=== PATIENT | male | born 1990 | race Caucasian/White ===

== ENCOUNTER 2023-10-22 18:47 | Emergency (ER) | payer BC, SELFPAY ==
[2023-10-22 18:48] VITALS: BP 130/75; BMI 30.6
[2023-10-22 19:48] VITALS: BP 112/91
--- NOTE | 2023-10-22 19:58 | ED.GENMED ---
History of Present Illness
General
Chief Complaint: Musculo-Skeletal Complaint
Source: patient and ambulance crew
Exam Limitations: none
Time Seen by Provider: 10/22/23 19:30
Nursing documentation reviewed up to this point in time: agreed with
Travel History
Have you had any contact with someone who has COVID-19?: No
Do you have any symptoms of coronavirus? Fever > 100 degrees, chills, cough, shortness of breath, sore throat, loss of taste or smell, muscle aches, or headache?: No
History of Present Illness
History of Present Illness:
33-year-old male with no chronic medical issues presents to the emergency room from the gym for evaluation of a right groin injury. Patient reports that he was squatting and when he got to about parallel on the way up from a squat he felt a pop in
the right groin and intense pain. He says he fell to his knees and laid down on his side and pain. EMS was called to bring her to the hospital. According to the medics he had a vagal episode in the ambulance and was given some fluids on the way
to the hospital. Patient says that he was in intense pain and began to feel slightly dizzy. Pain has improved but still intense when he moves his right leg particularly attempts at abduction. He points to the inguinal crease on the right as area
of maximal pain. He denies any other injuries or complaints.
Review of Systems
Review of Systems
All Other Systems: ROS reviewed and negative except as documented in HPI and ROS
Respiratory: Denies cough or trouble breathing
Cardiac: Reports syncope; Denies chest pain or palpitations
ABD/GI: Denies abdominal pain, nausea or vomiting
: Denies flank pain
Musculoskeletal: Reports muscle pain (Groin pain); Denies neck pain or back pain
Neurological: Denies headache
Phy Exam
Physical Exam
Physical Exam:
General: Awake, alert, oriented x3; no acute distress
Head: Normocephalic, atraumatic
Eyes: Conjunctiva normal
Throat: Airway intact, handling secretions
Neck: Trachea midline, supple without meningismus
Lungs: Breathing comfortably not in distress, normal pulse ox, normal respiratory rate
Heart: Regular rate and rhythm, no murmurs, gallops, or rubs
Abd: Soft, non distended, nontender, no palpable hernias
Neuro: Cranial nerves grossly intact, speech fluid, no gross motor or sensory deficits
Skin: No ecchymosis noted in area of concern
Extremities: No edema in extremities, equal pulses in all extremities specifically strong right DP and femoral pulses; he has no palpable inguinal hernia but he does have tenderness over the abductor tendon and the medial groin/inguinal crease on
the right and significant pain with attempts at abduction of the right hip as well as some pain with flexion of the hip on the right; rest of extremities atraumatic
Scores
Heart Failure Risk
Heart Failure Risk Score: Not Applicable
Heart Score for Chest Pain Patients
STEMI patient?: Not applicable
Withdrawal Assessment of Alcohol
Withdrawal Assessment Completed?: Not applicable
Course
Orders/Labs/Results
Orders:
Orders
10/22/23 19:32
Electrocardiogram (*1) Urgent
Reason for Study: Syncope
EKG- Treatment ONCE
10/22/23 19:47
CR Pelvis Comp Min 3 Views Urgent
Comment:
Reason For Exam: right groin pain
Vital Signs
Initial and Last Documented VS:
Initial Vital Signs
Temp Pulse Resp BP Pulse Ox
36.9 C 71 16 130/75 99
10/22/23 18:48 10/22/23 18:48 10/22/23 18:48 10/22/23 18:48 10/22/23 18:48
Last Documented Vital Signs
Temp Pulse Resp BP Pulse Ox
36.9 C 71 16 130/75 99
10/22/23 18:48 10/22/23 18:48 10/22/23 18:48 10/22/23 18:48 10/22/23 18:48
MDM/Problems Addressed
Differential Diagnosis Includes:
Groin tear, adductor tendon rupture, inguinal hernia
MDM/Problems Addressed:
33-year-old male presents for evaluation of acute onset groin pain while doing a squat dad heard a pop and had immediate pain in the right inguinal region. On the way to the hospital when he was being loaded into the ambulance he did have brief
vagal episode he says related to intense pain. EKG here reassuring. Will plan to check an x-ray of the pelvis. Suspect likely groin tear versus adductor tendon injury.
*Radiology
Radiology exam reviewed: preliminary read by ED provider and radiology read reviewed
*Pulse Oximetry
Patient hypoxic: no
*EKG
Interpreted by ED Provider?: Yes
Heart Rate: 75
Rate: normal
Rhythm: sinus
Parker: normal axis
Interval: normal interval
QRS Pattern: normal QRS
Ischemia: no ischemia
*Critical Care Note
Total Time (30-74mins, 75-104mins- exclusive of procedures): Not Applicable
Data Reviewed
Source: patient and ambulance crew
Prescriptions/Medications Considered But Not Given:
Offered pain medication but patient declined�pain at rest is not severe only with movement
ED Attending Note
-
Portions of this chart may have been created with voice recognition software.� Occasional wrong word or��sound alike� substitutions may have occurred due to the inherent limitations of voice recognition software.
Discharge Plan
Departure
Patient with high blood pressure during this ER visit?: No
Discharge Problem:
Groin injury
Instructions: Groin Strain ED
Prescriptions:
No Action
No Current Medications
0
Referrals:
Jack Leon MD [Family Provider] -
Steve Davis MD [Active] - Call in 1-3 days for appt (Orthopedist)
Activity Restrictions/Additional Instructions:
Thank you for visiting the Emergency Department at [facility].
1. Please schedule a follow up appointment as directed. Call first thing tomorrow morning to make an appointment.
2. If indicated, please take your medications as instructed and indicated on discharge paperwork.
3. If any of your symptoms do not improve, or persist, or become more severe within 6-12 hours, please return to the emergency department for further care.
4. Please return to the emergency department if you develop a headache, neck pain/stiffness, fever greater than 100.4F, chest pain, shortness of breath, persistent nausea, vomiting, slurred speech, difficulty walking, numbness/tingling, weakness,
signs of infection or any other symptoms that are worrisome to you.
Please call [phone] if you have any questions.
Interventions
Interventions:
*Risk Screen - Suicide Last Done: 10/22/23 18:48
*General Assessment Last Done: 10/22/23 18:48
*Neglect/Abuse Screening Last Done: 10/22/23 18:48
ED- Fall Risk Assessment Last Done: 10/22/23 18:48
*ED COVID-19 Vaccine History Last Done: 10/22/23 18:48
ED-Musculoskeletal Assessment Last Done: 10/22/23 18:48
Discharge Date and Time
Print Language: GEORGIAN
== END 2023-10-22 21:17 | disposition home or self-care (01) ==
LOC: EMR 18:47
PROVIDERS: EMERGENCY PHYSICIAN Emergency Medicine; FAMILY PHYSICIAN Internal Medicine
DX: S39.91XA Unspecified injury of abdomen, initial encounter (principal); X50.1XXA Overexertion from prolonged static or awkward postures, initial encounter
CPT/HCPCS: 99284; 72190; 93005